=== PATIENT | female | born 1980 | race Caucasian/White ===

== ENCOUNTER 2017-12-25 18:05 | Emergency (ER) | payer OTHER ==
[~2017-12-25] VITALS: Ht 162.6 cm; Wt 72.9 kg
[2017-12-25 18:47] LABS: HEMATOCRIT 45.8 % (36.0-46.0); HEMOGLOBIN 16.3 G/DL (11.9-15.5); MCH 31.7 PG (29.0-34.0); MCHC 35.6 G/DL (30.0-36.0); MCV 88.9 FL (83-99); RBC DIS.WIDTH-CV 12.7 % (11.8-14.6); RBC DIS.WIDTH-SD 41.6 % (39-53); RED BLOOD COUNT 5.15 M/uL (3.80-5.20); WHITE BLOOD COUNT 19.1 K/uL (4.1-10.2)
[2017-12-25 18:47] LABS: APPEARANCE SL.HAZY ((CLEAR)); BILIRUBIN NEGATIVE; BLOOD NEGATIVE; COLOR YELLOW ((YELLOW)); GLUCOSE (STRIP) NEGATIVE; KETONES NEGATIVE; LEUKOCYTES TRACE; NITRITE NEGATIVE; PROTEIN (STRIP) NEGATIVE; SPECIFIC GRAVITY 1.021 (1.000-1.030)
[2017-12-25 18:57] LABS: ALBUMIN 4.4 g/dL (3.2-4.8); CHLORIDE 102 mEq/L (99-109); POTASSIUM 3.7 mEq/L (3.7-5.4); SODIUM 136 mEq/L (136-147)
[2017-12-25 18:57] LABS: BACTERIA RARE /HPF; EPITHELIAL CELLS RARE /HPF; MUCUS 1+ /LPF; RED BLOOD CELLS 0-5 /HPF (0-5); UCUL ADDED? YES
[2017-12-25 18:59] LABS: GLUCOSE 101 mg/dL (70-99); TOTAL PROTEIN 7.7 g/dL (6.4-8.3)
[2017-12-25 19:01] LABS: TOTAL BILIRUBIN 0.3 mg/dL (0.0-1.0)
[2017-12-25 19:03] LABS: ALKALINE PHOSPHATASE 126 IU/L (3-129); CREATININE 0.8 mg/dL (0.6-1.3); GFR ESTIMATE (CALCULATED) > 59 mL/min/
[2017-12-25 19:04] LABS: UREA NITROGEN (BUN) 8 mg/dL (9-23)
[2017-12-25 19:05] LABS: AST (GOT) 23 IU/L (2-34)
[2017-12-25 19:06] LABS: ALT (GPT) 23 IU/L (3-49); LIPASE 17 U/L (1.0-51.0)
[2017-12-25 19:08] LABS: QUANTITATIVE HCG < 4.0 MIU/ML
[2017-12-25 19:33] LABS: PLATELET CLUMPS PRESENT - PLATELET COUNT APPEARS ADQ.; PLATELET COUNT UNABLE TO REPORT K/uL (156-360)
[2017-12-25] MEDS ORDERED: CIPRO500 MG PO (20:32)
[2017-12-25] MEDS ORDERED: FLAGYL500 MG PO (20:32)
[2017-12-25] MEDS ORDERED: PERCOCET 5/31 TABLET PO (20:32)
[2017-12-25] MEDS ORDERED: ZOFRAN ODT4 MG PO (20:32)
[2017-12-25 20:49] VITALS: BP 115/71
== END 2017-12-25 20:57 | disposition home or self-care (01) ==
LOC: EME 18:05
DX: K57.32 Diverticulitis of large intestine without perforation or abscess without bleeding (principal); Z85.528 Personal history of other malignant neoplasm of kidney; Z90.49 Acquired absence of other specified parts of digestive tract; F32.9 Major depressive disorder, single episode, unspecified; F43.10 Post-traumatic stress disorder, unspecified; F17.200 Nicotine dependence, unspecified, uncomplicated; Z88.6 Allergy status to analgesic agent; Z88.0 Allergy status to penicillin
CPT/HCPCS: 74177; 80053; 81003; 83690; 84702; 85027; 87086; 99281; 99285; J2270; J2405; J3010; J7030

== ENCOUNTER 2017-12-30 16:13 | Inpatient (IN) | payer OTHER ==
[~2017-12-30] VITALS: Ht 165.1 cm; Wt 73.5 kg
[~2017-12-30 16:13] MED LIST: CIPRO500 MG PO; FLAGYL500 MG PO; PERCOCET 5/31 TABLET PO; ZOFRAN ODT4 MG PO
[2017-12-30 17:01] LABS: HEMOGLOBIN 15.1 G/DL (11.9-15.5); MCH 31.3 PG (29.0-34.0); MCHC 35.1 G/DL (30.0-36.0); MCV 89.2 FL (83-99); PLATELET COUNT 273 K/uL (156-360); RBC DIS.WIDTH-CV 12.2 % (11.8-14.6); RBC DIS.WIDTH-SD 40.2 % (39-53); RED BLOOD COUNT 4.82 M/uL (3.80-5.20); WHITE BLOOD COUNT 17.7 K/uL (4.1-10.2)
[2017-12-30 17:13] LABS: ALBUMIN 3.9 g/dL (3.2-4.8); CHLORIDE 101 mEq/L (99-109); POTASSIUM 3.8 mEq/L (3.7-5.4); SODIUM 136 mEq/L (136-147)
[2017-12-30 17:15] LABS: GLUCOSE 126 mg/dL (70-99); TOTAL PROTEIN 6.8 g/dL (6.4-8.3)
[2017-12-30 17:19] LABS: ALKALINE PHOSPHATASE 110 IU/L (3-129); CREATININE 0.8 mg/dL (0.6-1.3); GFR ESTIMATE (CALCULATED) > 59 mL/min/
[2017-12-30 17:20] LABS: UREA NITROGEN (BUN) 8 mg/dL (9-23)
[2017-12-30 17:21] LABS: AST (GOT) 18 IU/L (2-34)
[2017-12-30 17:22] LABS: ALT (GPT) 25 IU/L (3-49); LIPASE 10 U/L (1.0-51.0); TOTAL BILIRUBIN 0.2 mg/dL (0.0-1.0)
[2017-12-30 17:29] LABS: QUANTITATIVE HCG < 4.0 MIU/ML
[2017-12-30 18:41] LABS: APPEARANCE CLEAR ((CLEAR)); BILIRUBIN NEGATIVE; BLOOD SMALL; COLOR YELLOW ((YELLOW)); GLUCOSE (STRIP) NEGATIVE; KETONES 5; LEUKOCYTES TRACE; NITRITE NEGATIVE; PROTEIN (STRIP) NEGATIVE; SPECIFIC GRAVITY 1.026 (1.000-1.030); UROBILINOGEN 0.2 MG/DL (0.2-1.0)
[2017-12-30 18:47] LABS: BACTERIA RARE /HPF; EPITHELIAL CELLS RARE /HPF; MUCUS 2+ /LPF; RED BLOOD CELLS 0-5 /HPF (0-5); UCUL ADDED? NO; WHITE BLOOD CELLS 0-5 /HPF (0-5)
[2017-12-30] MEDS ORDERED: CIPRO500 MG PO (20:29)
[2017-12-30] MEDS ORDERED: CATAPRES0.1 MG PO (20:30)
[2017-12-30] MEDS ORDERED: AMBIEN10 MG PO (20:30)
[2017-12-30] MEDS ORDERED: ATIVAN0.5 MG PO (20:31)
[2017-12-30] MEDS ORDERED: RISPERDAL0.5 MG PO (20:32)
[2017-12-30] MEDS ORDERED: VALIUM5 MG PO (20:33)
[2017-12-30] MEDS ORDERED: ZANTAC150 MG PO (20:33)
[2017-12-30] MEDS ORDERED: PROAIR HFA8.5 GM IH (20:34)
[2017-12-30 22:21] VITALS: BP 127/60
[2017-12-31 03:35] VITALS: BP 114/56
[2017-12-31 06:27] LABS: BASOPHIL (%) 0.2 % (0-1); BASOPHIL COUNT 0.1 K/uL (0-0.1); EOSINOPHIL (%) 0 % (0-5); HEMATOCRIT 40.7 % (36.0-46.0); HEMOGLOBIN 14.1 G/DL (11.9-15.5); IMMATURE GRANULOCYTE (%) 0.6 % (0.0-0.7); LYMPHOCYTE (%) 6.7 % (15-42); LYMPHOCYTE COUNT 1.6 K/uL (1.0-2.8); MCH 30.7 PG (29.0-34.0); MCHC 34.6 G/DL (30.0-36.0); MCV 88.7 FL (83-99); MONOCYTE (%) 5.5 % (3-12); MONOCYTE COUNT 1.4 K/uL (0-0.8); NEUTROPHIL COUNT 21.3 K/uL (1.8-6.4); PLATELET COUNT 281 K/uL (156-360); RBC DIS.WIDTH-CV 12.5 % (11.8-14.6); RED BLOOD COUNT 4.59 M/uL (3.80-5.20); WHITE BLOOD COUNT 24.5 K/uL (4.1-10.2)
[2017-12-31 06:52] LABS: ALBUMIN 3.4 G/DL (3.2-4.8); ALKALINE PHOSPHATASE 99 IU/L (3-129); ALT (GPT) 16 IU/L (3-49); AST (GOT) 12 IU/L (2-34); CHLORIDE 108 MEQ/L (99-109); CREATININE 0.7 MG/DL (0.6-1.3); GFR ESTIMATE (CALCULATED) > 59 mL/min/; GLUCOSE 128 mg/dL (70-99); POTASSIUM 4.1 MEQ/L (3.7-5.4); SODIUM 139 MEQ/L (136-147); TOTAL BILIRUBIN 0.6 MG/DL (0.0-1.0); TOTAL PROTEIN 5.6 G/DL (6.4-8.3); UREA NITROGEN (BUN) 6 mg/dL (9-23)
[2017-12-31 08:10] VITALS: BP 108/56
[2017-12-31 12:06] VITALS: BP 113/68
[2017-12-31 15:55] VITALS: BP 115/60
[2017-12-31 20:00] VITALS: BP 110/75
[2018-01-01] VITALS (7 sets, daily range): BP systolic 106–132; BP diastolic 56–83
[2018-01-01 06:41] LABS: HEMATOCRIT 39.4 % (36.0-46.0); HEMOGLOBIN 13.7 G/DL (11.9-15.5); MCHC 34.8 G/DL (30.0-36.0); MCV 89.1 FL (83-99); PLATELET COUNT 281 K/uL (156-360); RBC DIS.WIDTH-CV 12.7 % (11.8-14.6); RBC DIS.WIDTH-SD 41.8 % (39-53); RED BLOOD COUNT 4.42 M/uL (3.80-5.20); WHITE BLOOD COUNT 23.8 K/uL (4.1-10.2)
[2018-01-01 07:03] LABS: ALBUMIN 2.6 G/DL (3.2-4.8); CHLORIDE 110 MEQ/L (99-109); CREATININE 0.6 MG/DL (0.6-1.3); GFR ESTIMATE (CALCULATED) > 59 mL/min/; GLUCOSE 121 mg/dL (70-99); PHOSPHORUS 2.8 mg/dL (2.5-4.9); POTASSIUM 3.6 MEQ/L (3.7-5.4); SODIUM 138 MEQ/L (136-147); UREA NITROGEN (BUN) 12 mg/dL (9-23)
[2018-01-01 07:30] LABS: ABS NEUTROPHIL COUNT 22.8; ATYPICAL LYMPHOCYTE 0.4 %; BAND NEUTROPHILS 19.5 % (0-8.0); BURR CELLS 1+; EOSINOPHIL ABS CT 0; MONOCYTES 0.9 % (0-9.0); PLAT.SUFFICIENCY ADEQUATE; POIKILOCYTOSIS 1+; SEG.NEUTROPHILS 76.2 % (46.0-76.0)
[2018-01-01 11:48] LABS: C DIFF TOXIN NEGATIVE (NEGATIVE)
[2018-01-02] VITALS: BP 105/85
[2018-01-02 04:00] VITALS: BP 122/75
[2018-01-02 05:51] LABS: HEMATOCRIT 40.8 % (36.0-46.0); HEMOGLOBIN 14.2 G/DL (11.9-15.5); MCH 31.1 PG (29.0-34.0); MCHC 34.8 G/DL (30.0-36.0); MCV 89.5 FL (83-99); PLATELET COUNT 350 K/uL (156-360); RBC DIS.WIDTH-SD 42.4 % (39-53); RED BLOOD COUNT 4.56 M/uL (3.80-5.20); WHITE BLOOD COUNT 18.7 K/uL (4.1-10.2)
[2018-01-02 06:20] LABS: ALBUMIN 2.9 G/DL (3.2-4.8); ALKALINE PHOSPHATASE 76 IU/L (3-129); ALT (GPT) 11 IU/L (3-49); AST (GOT) 12 IU/L (2-34); CHLORIDE 107 MEQ/L (99-109); CREATININE 0.7 MG/DL (0.6-1.3); GFR ESTIMATE (CALCULATED) > 59 mL/min/; GLUCOSE 140 mg/dL (70-99); POTASSIUM 3.9 MEQ/L (3.7-5.4); SODIUM 141 MEQ/L (136-147); TOTAL BILIRUBIN 0.4 MG/DL (0.0-1.0); TOTAL PROTEIN 5.3 G/DL (6.4-8.3); UREA NITROGEN (BUN) 16 mg/dL (9-23)
[2018-01-02 07:47] VITALS: BP 106/61
[2018-01-02 15:23] VITALS: BP 136/73
[2018-01-02 22:58] VITALS: BP 120/71
[2018-01-03 03:53] VITALS: BP 110/67
[2018-01-03 06:15] LABS: BASOPHIL (%) 0.2 % (0-1); EOSINOPHIL (%) 0 % (0-5); HEMATOCRIT 34.6 % (36.0-46.0); IMMATURE GRANULOCYTE (%) 0.6 % (0.0-0.7); LYMPHOCYTE (%) 6.3 % (15-42); LYMPHOCYTE COUNT 1.2 K/uL (1.0-2.8); MCH 29.8 PG (29.0-34.0); MCHC 33.8 G/DL (30.0-36.0); MCV 88.3 FL (83-99); MONOCYTE (%) 6.1 % (3-12); MONOCYTE COUNT 1.1 K/uL (0-0.8); NEUTROPHIL (%) 86.8 % (45-76); NEUTROPHIL COUNT 15.9 K/uL (1.8-6.4); PLATELET COUNT 344 K/uL (156-360); RED BLOOD COUNT 3.92 M/uL (3.80-5.20); WHITE BLOOD COUNT 18.3 K/uL (4.1-10.2)
[2018-01-03 06:16] LABS: HEMOGLOBIN 11.7 G/DL (11.9-15.5)
[2018-01-03 06:32] LABS: ALBUMIN 2.9 G/DL (3.2-4.8); ALT (GPT) 6 IU/L (3-49); AST (GOT) 10 IU/L (2-34); C-REACTIVE PROTEIN 241.2 MG/L (0-10); CHLORIDE 106 MEQ/L (99-109); CREATININE 0.6 MG/DL (0.6-1.3); GFR ESTIMATE (CALCULATED) > 59 mL/min/; POTASSIUM 3.7 MEQ/L (3.7-5.4); SODIUM 139 MEQ/L (136-147); UREA NITROGEN (BUN) 13 mg/dL (9-23)
[2018-01-03 06:34] LABS: ALKALINE PHOSPHATASE 35 IU/L (3-129); GLUCOSE 84 mg/dL (70-99); TOTAL BILIRUBIN 0.6 MG/DL (0.0-1.0); TOTAL PROTEIN 4.3 G/DL (6.4-8.3)
[2018-01-03 07:32] VITALS: BP 105/55
[2018-01-03 11:03] VITALS: BP 114/73
[2018-01-03 15:57] VITALS: BP 117/59
[2018-01-03 19:46] VITALS: BP 108/59
[2018-01-04 03:59] VITALS: BP 104/64
[2018-01-04 05:40] LABS: BASOPHIL (%) 0.2 % (0-1); EOSINOPHIL (%) 0.2 % (0-5); HEMATOCRIT 32.4 % (36.0-46.0); IMMATURE GRANULOCYTE (%) 0.7 % (0.0-0.7); LYMPHOCYTE (%) 10.4 % (15-42); LYMPHOCYTE COUNT 1.9 K/uL (1.0-2.8); MCV 88.3 FL (83-99); MONOCYTE (%) 8.5 % (3-12); MONOCYTE COUNT 1.5 K/uL (0-0.8); NEUTROPHIL COUNT 14.4 K/uL (1.8-6.4); PLATELET COUNT 336 K/uL (156-360); RBC DIS.WIDTH-CV 13.1 % (11.8-14.6); RBC DIS.WIDTH-SD 42.5 % (39-53); RED BLOOD COUNT 3.67 M/uL (3.80-5.20)
[2018-01-04 06:26] LABS: ALBUMIN 2.8 G/DL (3.2-4.8); ALKALINE PHOSPHATASE 38 IU/L (3-129); ALT (GPT) 5 IU/L (3-49); AST (GOT) 11 IU/L (2-34); C-REACTIVE PROTEIN 252.6 MG/L (0-10); CHLORIDE 105 MEQ/L (99-109); CREATININE 0.6 MG/DL (0.6-1.3); GFR ESTIMATE (CALCULATED) > 59 mL/min/; GLUCOSE 75 mg/dL (70-99); POTASSIUM 3.8 MEQ/L (3.7-5.4); SODIUM 140 MEQ/L (136-147); TOTAL BILIRUBIN 0.5 MG/DL (0.0-1.0); TOTAL PROTEIN 4.4 G/DL (6.4-8.3); UREA NITROGEN (BUN) 13 mg/dL (9-23)
[2018-01-04 07:40] VITALS: BP 104/62
[2018-01-04 19:00] VITALS: BP 123/79
[2018-01-04 23:25] VITALS: BP 114/66
[2018-01-05] VITALS (7 sets, daily range): BP systolic 109–127; BP diastolic 63–73
[2018-01-05 06:25] LABS: BASOPHIL (%) 0.2 % (0-1); EOSINOPHIL (%) 0.6 % (0-5); EOSINOPHIL COUNT 0.1 K/uL (0-0.3); HEMATOCRIT 33.5 % (36.0-46.0); HEMOGLOBIN 11.5 G/DL (11.9-15.5); LYMPHOCYTE (%) 12.5 % (15-42); MCH 29.9 PG (29.0-34.0); MCHC 34.3 G/DL (30.0-36.0); MONOCYTE (%) 11.5 % (3-12); MONOCYTE COUNT 1.9 K/uL (0-0.8); NEUTROPHIL (%) 74.2 % (45-76); NEUTROPHIL COUNT 12.2 K/uL (1.8-6.4); PLATELET COUNT 363 K/uL (156-360); RBC DIS.WIDTH-CV 13.2 % (11.8-14.6); RBC DIS.WIDTH-SD 41.6 % (39-53); RED BLOOD COUNT 3.85 M/uL (3.80-5.20); WHITE BLOOD COUNT 16.4 K/uL (4.1-10.2)
[2018-01-05 06:43] LABS: INTER. NORMALIZED RATIO 1.5
[2018-01-05 07:05] LABS: C-REACTIVE PROTEIN 159.4 MG/L (0-10); CHLORIDE 105 MEQ/L (99-109); CREATININE 0.5 MG/DL (0.6-1.3); GFR ESTIMATE (CALCULATED) > 59 mL/min/; GLUCOSE 99 mg/dL (70-99); POTASSIUM 3.5 MEQ/L (3.7-5.4); SODIUM 139 MEQ/L (136-147); UREA NITROGEN (BUN) 9 mg/dL (9-23)
[2018-01-06 03:30] VITALS: BP 117/72
[2018-01-06 06:11] LABS: HEMATOCRIT 35.5 % (36.0-46.0); HEMOGLOBIN 12.1 G/DL (11.9-15.5); MCH 29.8 PG (29.0-34.0); MCHC 34.1 G/DL (30.0-36.0); MCV 87.4 FL (83-99); PLATELET COUNT 388 K/uL (156-360); RBC DIS.WIDTH-CV 13.2 % (11.8-14.6); RBC DIS.WIDTH-SD 42.4 % (39-53); RED BLOOD COUNT 4.06 M/uL (3.80-5.20); WHITE BLOOD COUNT 14.2 K/uL (4.1-10.2)
[2018-01-06 06:34] LABS: CHLORIDE 104 MEQ/L (99-109); CREATININE 0.5 MG/DL (0.6-1.3); GFR ESTIMATE (CALCULATED) > 59 mL/min/; GLUCOSE 107 mg/dL (70-99); POTASSIUM 3.7 MEQ/L (3.7-5.4); SODIUM 138 MEQ/L (136-147); UREA NITROGEN (BUN) 6 mg/dL (9-23)
[2018-01-06 07:43] VITALS: BP 113/75
[2018-01-06 11:20] VITALS: BP 125/82
[2018-01-06 15:19] VITALS: BP 116/56
[2018-01-06 19:05] VITALS: BP 104/56
[2018-01-06 23:15] VITALS: BP 119/76
[2018-01-07 03:42] VITALS: BP 119/75
[2018-01-07 05:56] LABS: HEMATOCRIT 34.9 % (36.0-46.0); HEMOGLOBIN 11.9 G/DL (11.9-15.5); MCH 29.7 PG (29.0-34.0); MCHC 34.1 G/DL (30.0-36.0); PLATELET COUNT 391 K/uL (156-360); RBC DIS.WIDTH-CV 13.3 % (11.8-14.6); RED BLOOD COUNT 4.01 M/uL (3.80-5.20); WHITE BLOOD COUNT 14.8 K/uL (4.1-10.2)
[2018-01-07 06:19] LABS: CHLORIDE 105 MEQ/L (99-109); CREATININE 0.5 MG/DL (0.6-1.3); GFR ESTIMATE (CALCULATED) > 59 mL/min/; GLUCOSE 109 mg/dL (70-99); POTASSIUM 3.2 MEQ/L (3.7-5.4); SODIUM 138 MEQ/L (136-147); UREA NITROGEN (BUN) 4 mg/dL (9-23)
[2018-01-07 07:19] VITALS: BP 113/86
[2018-01-07 11:09] VITALS: BP 115/70
[2018-01-07 15:16] VITALS: BP 136/78
[2018-01-07 18:33] VITALS: BP 137/66
[2018-01-07 23:49] VITALS: BP 127/70
[2018-01-08 06:49] LABS: PLATELET COUNT 471 K/uL (156-360)
[2018-01-08 06:59] LABS: HEMATOCRIT 36.3 % (36.0-46.0); HEMOGLOBIN 12.6 G/DL (11.9-15.5); MCHC 34.7 G/DL (30.0-36.0); MCV 86.4 FL (83-99); RBC DIS.WIDTH-CV 13.5 % (11.8-14.6); RBC DIS.WIDTH-SD 42.2 % (39-53)
[2018-01-08 07:01] LABS: WHITE BLOOD COUNT 31.1 K/uL (4.1-10.2)
[2018-01-08 07:17] LABS: CHLORIDE 103 MEQ/L (99-109); CREATININE 0.5 MG/DL (0.6-1.3); GFR ESTIMATE (CALCULATED) > 59 mL/min/; GLUCOSE 117 mg/dL (70-99); SODIUM 137 MEQ/L (136-147); UREA NITROGEN (BUN) 3 mg/dL (9-23)
[2018-01-08 07:23] LABS: POTASSIUM 4.1 MEQ/L (3.7-5.4)
[2018-01-08 09:01] VITALS: BP 118/72
[2018-01-08 11:48] VITALS: BP 107/61
[2018-01-08 16:02] LABS: C DIFF TOXIN NEGATIVE (NEGATIVE)
[2018-01-08 16:15] VITALS: BP 99/58
[2018-01-09 00:11] VITALS: BP 117/69
[2018-01-09 06:07] LABS: HEMOGLOBIN 11.3 G/DL (11.9-15.5); MCH 30.2 PG (29.0-34.0); MCHC 34.2 G/DL (30.0-36.0); MCV 88.2 FL (83-99); PLATELET COUNT 434 K/uL (156-360); RBC DIS.WIDTH-CV 14.1 % (11.8-14.6); RBC DIS.WIDTH-SD 45.3 % (39-53); RED BLOOD COUNT 3.74 M/uL (3.80-5.20); WHITE BLOOD COUNT 22.3 K/uL (4.1-10.2)
[2018-01-09 06:29] LABS: CHLORIDE 102 MEQ/L (99-109); CREATININE 0.5 MG/DL (0.6-1.3); GFR ESTIMATE (CALCULATED) > 59 mL/min/; GLUCOSE 90 mg/dL (70-99); POTASSIUM 3.9 MEQ/L (3.7-5.4); SODIUM 138 MEQ/L (136-147); UREA NITROGEN (BUN) 6 mg/dL (9-23)
[2018-01-09 08:13] VITALS: BP 113/62
[2018-01-09 11:56] VITALS: BP 111/60
[2018-01-09 16:34] VITALS: BP 117/63
[2018-01-09 23:36] VITALS: BP 117/66
[2018-01-10 06:52] LABS: BASOPHIL (%) 0.2 % (0-1); EOSINOPHIL (%) 0.7 % (0-5); EOSINOPHIL COUNT 0.1 K/uL (0-0.3); HEMATOCRIT 36.2 % (36.0-46.0); HEMOGLOBIN 12.3 G/DL (11.9-15.5); LYMPHOCYTE (%) 10.7 % (15-42); LYMPHOCYTE COUNT 1.5 K/uL (1.0-2.8); MCH 29.9 PG (29.0-34.0); MCV 87.9 FL (83-99); MONOCYTE (%) 9.8 % (3-12); MONOCYTE COUNT 1.4 K/uL (0-0.8); NEUTROPHIL (%) 77.6 % (45-76); NEUTROPHIL COUNT 10.6 K/uL (1.8-6.4); PLATELET COUNT 538 K/uL (156-360); RBC DIS.WIDTH-CV 13.9 % (11.8-14.6); RED BLOOD COUNT 4.12 M/uL (3.80-5.20); WHITE BLOOD COUNT 13.7 K/uL (4.1-10.2)
[2018-01-10 07:07] LABS: CHLORIDE 102 MEQ/L (99-109); CREATININE 0.5 MG/DL (0.6-1.3); GFR ESTIMATE (CALCULATED) > 59 mL/min/; GLUCOSE 101 mg/dL (70-99); POTASSIUM 4.1 MEQ/L (3.7-5.4); SODIUM 136 MEQ/L (136-147); UREA NITROGEN (BUN) 4 mg/dL (9-23)
[2018-01-10 07:58] VITALS: BP 119/63
[2018-01-10 16:16] VITALS: BP 120/64
[2018-01-11] VITALS: BP 116/76
[2018-01-11 07:40] VITALS: BP 120/72
[2018-01-11 15:59] VITALS: BP 117/72
[2018-01-11 23:57] VITALS: BP 116/63
[2018-01-12 07:28] VITALS: BP 118/69
[2018-01-12 08:18] LABS: HEMATOCRIT 35.3 % (36.0-46.0); HEMOGLOBIN 11.9 G/DL (11.9-15.5); MCH 29.8 PG (29.0-34.0); MCHC 33.7 G/DL (30.0-36.0); MCV 88.3 FL (83-99); PLATELET COUNT 565 K/uL (156-360); RBC DIS.WIDTH-CV 13.8 % (11.8-14.6); RBC DIS.WIDTH-SD 44.8 % (39-53); WHITE BLOOD COUNT 13.9 K/uL (4.1-10.2)
[2018-01-12 08:44] LABS: CHLORIDE 102 MEQ/L (99-109); CREATININE 0.5 MG/DL (0.6-1.3); GFR ESTIMATE (CALCULATED) > 59 mL/min/; GLUCOSE 98 mg/dL (70-99); POTASSIUM 3.5 MEQ/L (3.7-5.4); SODIUM 138 MEQ/L (136-147); UREA NITROGEN (BUN) 5 mg/dL (9-23)
[2018-01-12 09:26] VITALS: BP 104/64
[2018-01-12 15:36] VITALS: BP 111/68
[2018-01-12 23:40] VITALS: BP 112/68
[2018-01-13 08:15] VITALS: BP 100/65
[2018-01-13] MEDS ORDERED: DIFLUCAN200 MG PO (09:07)
[2018-01-13] MEDS ORDERED: PERCOCET 10/1 TABLET PO (09:07)
== END 2018-01-13 12:54 | disposition home or self-care (01) | DRG 329 ==
LOC: EME 16:13 → 2EAST 21:05 → EDOF 21:05 → ENRESERV 21:10 → 2EAST 22:09
PROVIDERS: Emergency Medicine; Internal Medicine; Internal Medicine Gastroenterology; Physician Assistant; Physician Assistant Medical; Physician Assistant Surgical; Student in an Organized Health Care Education/Training Program
PROC: 0D988ZZ Drainage of Small Intestine, Via Natural or Artificial Opening Endoscopic (ICD-10-PCS; principal; 2018-01-02)
PROC: 0DQE0ZZ Repair Large Intestine, Open Approach (ICD-10-PCS; principal; 2018-01-02)
DX: K57.20 Diverticulitis of large intestine with perforation and abscess without bleeding (principal); K52.9 Noninfective gastroenteritis and colitis, unspecified; E87.6 Hypokalemia; K91.30 Postprocedural intestinal obstruction, unspecified as to partial versus complete; K91.71 Accidental puncture and laceration of a digestive system organ or structure during a digestive system procedure; K65.8 Other peritonitis; K56.600 Partial intestinal obstruction, unspecified as to cause; K63.1 Perforation of intestine (nontraumatic); K56.0 Paralytic ileus; S36.59 Other injury of colon; F32.9 Major depressive disorder, single episode, unspecified; F41.9 Anxiety disorder, unspecified; Y83.8 Other surgical procedures as the cause of abnormal reaction of the patient, or of later complication, without mention of misadventure at the time of the procedure; K59.00 Constipation, unspecified; F43.10 Post-traumatic stress disorder, unspecified; K58.9 Irritable bowel syndrome, unspecified; J98.11 Atelectasis; F17.200 Nicotine dependence, unspecified, uncomplicated; R00.0 Tachycardia, unspecified; K21.9 Gastro-esophageal reflux disease without esophagitis; Z88.6 Allergy status to analgesic agent; Z88.0 Allergy status to penicillin; Z91.19 Patient's noncompliance with other medical treatment and regimen; M54.10 Radiculopathy, site unspecified; Y92.234 Operating room of hospital as the place of occurrence of the external cause
CPT/HCPCS: 71046; 74018; 74019; 74176; 74177; 76937; 80048; 80053; 80069; 81003; 83605; 83690; 84702; 85025; 85027; 85610; 86140; 87040; 87070; 87075; 87106; 87186; 87205; 87493; 99281; 99285; C1751; C1894; J0131; J0330; J0744; J1170; J1450; J1885; J1956; J2060; J2250; J2270; J2405; J2543; J2710; J3010; J3480; J7030; J7042; J7050; J7120; J7643; P9047; S0028; S0030